=== PATIENT | female | born 1950 | race Caucasian/White ===

== ENCOUNTER 2024-07-24 20:55 | Emergency (ER) | payer MEDICARE, OTHER ==
[~2024-07-24] VITALS: Ht 160 cm; Wt 68.0 kg
== END 2024-07-25 01:23 | disposition home or self-care (01) ==
LOC: ER 20:55
DX: M79.89 Other specified soft tissue disorders (principal); I10 Essential (primary) hypertension; I48.91 Unspecified atrial fibrillation; E11.9 Type 2 diabetes mellitus without complications; Z88.5 Allergy status to narcotic agent; Z88.8 Allergy status to other drugs, medicaments and biological substances
CPT/HCPCS: 73590; 93971; 99284-25